=== PATIENT | female | born 1970 | race Caucasian/White ===

== ENCOUNTER 2016-08-14 13:31 | Observation (INO) | payer OTHER ==
--- NOTE | ~2016-08-14 | HP ---
History And Physical [place] [id number] [place]. [address] NAME: TAYLOR MCCLELLAND : 68 STATUS : DIS Augusto PAT#: [id number] AGE: 46 ADM/REG DATE : 08/14/16 MR#: [id number] REPORT SERV DATE: 08/25/16 DICTATED BY: FABIANO COLLINS III DATE: 08/14/16 REPORT STATUS : Draft TRANSCRIBED BY: MODBear DATE: 08/14/16 DATE OF ADMISSION: 08/14/2016 HISTORY OF PRESENT ILLNESS: The patient is a 46-year-old white female, admitted with a several-day history of vague abdominal pain that had gotten so bad that she came to the emergency room at [facility] and was worked up there. The pain never seem to lateralize according to her history, but Dr. Matthew with whom I spoke, said that the pain was more in the right lower quadrant than anywhere else when he examined her. The patient's white count was elevated at 19,000. CT scan done and read by two different radiologist as well as a personal review by this physician showed the appendix to be enlarged with some questionable fat stranding around it. The patient denied any real diarrhea or significant nausea or vomiting, just the abdominal pain, which is different from her chronic abdominal pain, which she says she has related to a diagnosis of Lyme disease. She has been on medications for this. Her Lyme disease was diagnosed by some physician in [place], who specializes in this disease, apparently started her on erythromycin and Ceftin as antibiotics, which she takes for this chronic Lyme disease on a regular basis. PAST MEDICAL HISTORY: The patient's past medical history is her weight has been stable, but she has a lot of vague symptoms related to her Lyme disease including headaches, neck pain, back pain, shoulder pain, pain in her legs and hips as well as significant abdominal pain and headaches. These have gotten somewhat better with the therapy she is presently taking. 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 SOCIAL HISTORY: She works as an occupational therapy professional in pediatric setting. She denies alcohol or tobacco use with alcohol only on a social basis. REVIEW OF SYSTEMS: Consistent with a fairly stable weight, which is very thin and all the various and sundry complaints that she has had are listed above in the past history. She denies urinary tract symptoms as well as diarrhea. She has really had no significant fever or chills. FAMILY HISTORY: Noncontributory. The physical exam, the patient is a very thin and short, 5 foot 92-pound white female transferred from [facility] to [facility] at the patient's request. There are some very unusual setting with the transfer and that the patient went to [facility] with the abdominal pain and was told that she had appendicitis and needed surgery, and the patient was unwilling to go to surgery at [facility] because she feared small hospitals due to the family member who had, had a bad experience with that type of History And Physical [address] [address] NAME: TAYLOR MCCLELLAND : 68 STATUS : DIS Augusto PAT#: [id number] AGE: 46 ADM/REG DATE : 08/14/16 MR#: [id number] REPORT SERV DATE: 08/25/16 DICTATED BY: FABIANO COLLINS III DATE: 08/14/16 REPORT STATUS : Draft TRANSCRIBED BY: ROBBY DATE: 08/14/16 hospital setting. She also refused to go to [facility] where she works, even though she was told that her financial exposure will be increased by staying here or going even to the [facility]. The patient insisted on coming to the [facility] as outlined above and for personal reasons would not go to [place] or stay at [facility] under Dr. Bobo Matthew's care. She did not have a problem with Dr. Matthew per se, but feared the small hospital setting. PHYSICAL EXAMINATION: GENERAL: She is a thin white female, in no acute distress. HEENT: Showed her to be normocephalic with pupils equally round and reactive to light and accommodation with no asymmetry. NECK: Supple. CHEST: Clear with normal inspiratory effort. HEART: Regular rate and rhythm with occasional extrasystole. ABDOMEN: Soft, but diffusely tender with tenderness that seemed to be more migratory with the exam being more tender in the left lower quadrant on some occasions, and then the left upper quadrant on other occasions, as well as the right upper quadrant and right lower quadrant and other evaluations. She had no hepatomegaly and there were no other abnormalities identified in her CT scan other than the appendix abnormality, which I reviewed personally and two radiologist concurred with the diagnosis. EXTREMITIES: The patient's extremities are grossly anatomic. 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 NEUROLOGICAL: She was alert and oriented x4 with a good grasp of the risk and expectations of surgery including the risk of bleeding, infection, conversion to wide open surgery and risk of bowel injury as well as leaking from the appendiceal stump and anesthetic risk as well as adhesions that could cause bowel obstructions and hernia possibilities were also mentioned. The patient will be taken to the operating room for laparoscopic-assisted open appendectomy at our earliest convenience. CHENG/ROBBY Fabiano Collins III, M.D. / [id number] CC: Fabiano Collins III, M.D.
--- NOTE | ~2016-08-14 | OP ---
Record Of Operation [facility] [address] [address] NAME: TAYLOR MCCLELLAND : 68 STATUS : DIS Augusto PAT#: [id number] AGE: 46 ADM/REG DATE : 08/14/16 MR#: [id number] REPORT SERV DATE: 08/29/16 DICTATED BY: FABIANO COLLINS III DATE: 08/14/16 REPORT STATUS : Draft TRANSCRIBED BY: MODL DATE: 08/14/16 DATE OF PROCEDURE: 08/14/2016 ESTIMATED BLOOD LOSS: 10 mL. SURGEON: Fabiano Collins MD, FACS TOWER ATTENDANT: Lou. ANESTHESIA: General with endotracheal tube supplemented with 0.5% plain Marcaine, locally infiltrated in the small infraumbilical incision that was about 2 cm size. The patient tolerated the procedure well and will be kept overnight for observation due to her white count and atypical presentation, to be sure she is stable enough to go home without complication. CHENG/ROBBY Fabiano Collins III, M.D. / [id number] CC: Fabiano Collins III, M.D.
--- NOTE | ~2016-08-14 | OP ---
Record Of Operation [facility] [address] [place]. [address] NAME: TAYLOR MCCLELLAND : 68 STATUS : ADM IN PAT#: [id number] AGE: 46 ADM/REG DATE : 08/14/16 MR#: [id number] REPORT SERV DATE: 08/14/16 DICTATED BY: FABIANO CHU III DATE: 08/14/16 REPORT STATUS : Draft TRANSCRIBED BY: MODL DATE: 08/14/16 DATE OF PROCEDURE: 08/14/2016 PREOPERATIVE DIAGNOSIS: Acute appendicitis as seen on CT scan and leukocytosis in a patient with abdominal pain, that was fairly atypical examination. POSTOPERATIVE DIAGNOSIS: Acute appendicitis as seen on CT scan and leukocytosis in a patient with abdominal pain, that was fairly atypical examination. PATHOLOGY: An enlarged appendix with some inflammatory reaction from the level of the base to the mid appendix, but very little involvement of the distal appendix itself. The appendix was approximately 4.5 to 6 cm in length with a slightly increased diameter of 1 to 1.5 cm. There were a few adhesions to the surrounding tissues. The cecum appeared to be normal. The liver was normal. The gallbladder was essentially normal even though the patient has a history of a 22% ejection fraction with biliary dyskinesia having been diagnosed in the past. The spleen was not visible to speak of and the colon and the transverse colon, descending colon, sigmoid colon appeared to be unremarkable. Small bowel was unremarkable. Terminal ileum was also seen and noted to be unremarkable. Using the right angle operating laparoscope, a small incision was made infraumbilically and the 12-mm balloon port introduced without difficulty. The balloon port was inflated and the abdominal cavity insufflated to 15 mmHg pressure with carbon dioxide gas. The 0 angle 10-mm laparoscope was introduced and internal exam performed as described above. This was then converted to a right angle operating laparoscope and the laparoscope used to free up the adhesions from the cecum to the lateral abdominal wall taking these adhesions down to free up the appendix and cecum for more mobilization for an open appendectomy. The other bowel was manipulated just for visibility and not grasp. The liver, colon, and small bowel were unremarkable as described. There were no real abnormalities of the remainder of the viscera. The appendix was then grasped after it had been mobilized and brought up through the incision and the trocar deflated and the abdominal cavity insufflated and the appendix brought up. The mesoappendix was controlled with 3-0 Vicryl freehand ties as well as the appendiceal artery, which was identified and controlled with 3-0 Vicryl freehand ties. The appendix was then surrounded with a pursestring of 3-0 silk and doubly clamped with hemostats and divided with a knife. A 15 blade was used and the end of the mucosa cauterized with the knife blade. A heavy tie of 2-0 Vicryl was then placed doubly around the appendiceal base and the appendiceal base was inverted into the cecum using a 3-0 silk pursestring suture as well as a Z-stitch over the silks pursestring using 3-0 Vicryl to further dunk the pursestring to appendiceal stump using the Z-stitch to pull the cecal tissues over the closed appendix even more tightly. Good closure appreciated. No active bleeding. Irrigation was carried out with about 500 mL of normal saline and the saline suctioned out as best as possible. The laparoscope was reintroduced and the appendiceal Record Of Operation [address] [facility] [id number] [place]. [address] NAME: TAYLOR MCCLELLAND : 68 STATUS : ADM IN PAT#: [id number] AGE: 46 ADM/REG DATE : 08/14/16 MR#: [id number] REPORT SERV DATE: 08/14/16 DICTATED BY: FABIANO CHU III DATE: 08/14/16 REPORT STATUS : Draft TRANSCRIBED BY: MODBear DATE: 08/14/16 stump re-evaluated intraabdominally with no active bleeding noted and no sign of any issues with the positioning of the cecum. After this had been done, the scope and trocar again were removed and the procedure prepared for closure. After correct sponge, needle, and instrument count, the abdomen was closed with [id number] sutures of 0 Vicryl. We closed the fascia in a transverse fashion. The subcutaneous tissue was closed an interrupted 3-0 Vicryl, the skin closed with a running suture of 4-0 Monocryl. The incision was then closed with Telfa and Tegaderm, and the procedure concluded. A 500 mL of crystalloid were given as well as estimated blood loss 10 mL. The patient tolerated the procedure well and will be kept in the hospital overnight for observation. RB/MODL Fabiano Chu III, M.D. / [id number] CC: Yesy Agarwal III, M.D.
[~2016-08-14 13:31] MED LIST: BIAXIN XL500 MG PO; CEFT5 PO; [UNRECOGNIZED DRUG - OTHER]
[2016-08-15 06:05] LABS: BASOPHILS 0.2 %; BASOPHILS ABSOLUTE 0.02 10/3/uL (0.0-0.16); EOSINOPHILS 0.6 %; EOSINOPHILS ABSOLUTE 0.05 10/3/uL (0.0-0.53); HEMOGLOBIN 11.5 g/dL (12.0-16.0); IMMATURE GRANULOCYTES 0.4 %; IMMATURE GRANULOCYTES ABSOLUTE 0.03 10/3/uL (0.0-0.11); LYMPHOCYTES 21.1 %; LYMPHOCYTES ABSOLUTE 1.72 10/3/uL (0.67-4.30); MEAN CORPUS HGB CONC 34.8 g/dL (32.0-36.0); MEAN CORPUSCULAR HEMOGLOB 31.3 pg (26.0-34.0); MEAN CORPUSCULAR VOLUME 89.9 fL (80-100); MEAN PLATELET VOLUME 9.5 fL (9.2-13.0); MONOCYTES 11.3 %; MONOCYTES ABSOLUTE 0.92 10/3/uL (0.21-1.20); NEUTROPHILS 66.4 %; PLATELET COUNT 154 10/3/uL (150-400); RBC DISTRIBUTION WIDTH 12.2 % (12.0-16.0); RED CELL COUNT 3.67 10/6/uL (4.0-5.6)
[2016-08-15 06:08] LABS: MANUAL DIFF NO %; WHITE BLOOD CELLS 8.1 10/3/uL (4.5-10.5)
[2016-08-15 06:22] LABS: INTERNATIONAL NORMAL RATI 1.2 UNITS (-); PARTIAL THROMBO TIME 29.3 SEC (22.5-37.2); PROTIME (NOT ORD) 15.2 SEC (12.0-14.5)
[2016-08-15 06:29] LABS: CHLORIDE, SERUM 111 MMOL/L (96-112); CO2 (CARBON DIOXIDE) 28 MMOL/L (24-34); CREATININE 0.68 MG/DL (0.55-1.02); GFR AFRICAN AMERICAN 121 ML/MIN (>=60); GFR NON AFRICAN AMERICAN 104 ML/MIN (>=60); GLUCOSE, SERUM 139 MG/DL (60-99); POTASSIUM, SERUM 3.9 MMOL/L (3.5-5.3); SODIUM, SERUM 142 MMOL/L (135-148); ULTRASENSITIVE TSH 0.736 MCIU/ML (0.358-3.740)
[2016-08-15 06:31] LABS: BUN (BLOOD UREA NITROGEN) 3 MG/DL (6-23)
[2016-08-15 07:55] LABS: ASCORBIC ACID (UR NOT ORDER) NEG (NEG); BILIRUBIN, URINE NEGATIVE (NEG); KETONE, URINE NEGATIVE (NEG); LEUKOCYTE ESTERASE(NOT OR NEG (NEG); WBC (NOT ORDERED) (RFLEX) < 1 (0-5)
[2016-08-15] MEDS ORDERED: NORCO1 TA1 PO (14:15)
[2016-08-15] MEDS ORDERED: ZOFRAN4 PO (14:16)
== END 2016-08-15 15:25 | disposition home or self-care (01) ==
LOC: 5SO 13:31
PROVIDERS: Surgery
PROC: 0DTJ4ZZ Resection of Appendix, Percutaneous Endoscopic Approach (ICD-10-PCS; principal; 2016-08-14 15:00)
DX: K35.80 Unspecified acute appendicitis (principal); R00.2 Palpitations
CPT/HCPCS: 80048; 81001; 84443; 85025; 85610; 85611; 85611-59; 85730; 88304; 96372; 96374; 96375; 96376; A9270-GY; G0378; J0330; J1170; J2250; J2405; J2543; J3010